=== PATIENT | male | born 1955 | race Caucasian/White ===

== ENCOUNTER 2023-05-28 05:40 | Inpatient (IN) | payer MEDICARE, OTHER ==
[2023-05-24 15:55] VITALS: BMI 24.0
[2023-05-28] MEDS ORDERED: PROPOFOL 200 MG/20 ML VIAL ONE (08:09)
== END 2023-05-28 10:35 | disposition home or self-care (01) | DRG 392 ==
LOC: SDC 05:40 → SURG A 06:17
PROVIDERS: ADMIT Internal Medicine; ATTEND Internal Medicine
PROC: 0DJ08ZZ Inspection of Upper Intestinal Tract, Via Natural or Artificial Opening Endoscopic (ICD-10-PCS; principal; 2023-05-28)
DX: R13.10 Dysphagia, unspecified (principal); R63.4 Abnormal weight loss; E78.00 Pure hypercholesterolemia, unspecified; J45.909 Unspecified asthma, uncomplicated; Z98.890 Other specified postprocedural states; Z79.899 Other long term (current) drug therapy
CPT/HCPCS: 36416

== ENCOUNTER 2023-07-26 09:16 | Outpatient (CLI) | payer MEDICARE, OTHER | END 2023-07-26 09:17 | disposition home or self-care (01) | LOC: RAD 09:16 | PROVIDERS: ATTEND Internal Medicine Critical Care Medicine | DX: R06.00 Dyspnea, unspecified (principal); J18.9 Pneumonia, unspecified organism | CPT/HCPCS: 71046 ==

== ENCOUNTER 2024-05-26 10:44 | Outpatient (CLI) | payer MEDICARE, OTHER | END 2024-05-26 10:45 | disposition home or self-care (01) | LOC: RAD 10:44 | PROVIDERS: ATTEND Internal Medicine Critical Care Medicine | DX: R06.00 Dyspnea, unspecified (principal) | CPT/HCPCS: 71046 ==

== ENCOUNTER 2025-04-08 06:19 | Day surgery (SDC) | payer MEDICARE, OTHER ==
[2025-04-07 12:20] VITALS: BMI 26.6
[2025-04-08] MEDS ORDERED: PROPOFOL 40 ML ONE (07:02)
[2025-04-08] MEDS ORDERED: Lidocaine 1% PF 5 ML VIAL ONE (07:02)
[2025-04-08] MEDS ORDERED: Albuterol HFA (OR) 200 PUFF INH ONE (07:55)
[2025-04-08] MEDS ORDERED: Glycopyrrolate 0.2 MG/ML 5 ML SYRINGE ONE (08:03)
[2025-04-08] MEDS ORDERED: PROPOFOL 20 ML ONE (08:30)
== END 2025-04-08 09:57 | disposition home or self-care (01) ==
LOC: SDC 06:19
PROVIDERS: ATTEND Internal Medicine
PROC: 0DBM8ZZ Excision of Descending Colon, Via Natural or Artificial Opening Endoscopic (ICD-10-PCS; principal; 2025-04-08)
PROC: 0DBL8ZZ Excision of Transverse Colon, Via Natural or Artificial Opening Endoscopic (ICD-10-PCS; 2025-04-08)
PROC: 0DBN8ZZ Excision of Sigmoid Colon, Via Natural or Artificial Opening Endoscopic (ICD-10-PCS; 2025-04-08)
PROC: 0DBP8ZZ Excision of Rectum, Via Natural or Artificial Opening Endoscopic (ICD-10-PCS; 2025-04-08)
PROC: 0DJ08ZZ Inspection of Upper Intestinal Tract, Via Natural or Artificial Opening Endoscopic (ICD-10-PCS; 2025-04-08)
DX: Z12.11 Encounter for screening for malignant neoplasm of colon (principal); D12.3 Benign neoplasm of transverse colon; D12.5 Benign neoplasm of sigmoid colon; D12.8 Benign neoplasm of rectum; K57.30 Diverticulosis of large intestine without perforation or abscess without bleeding; K64.8 Other hemorrhoids; K63.89 Other specified diseases of intestine; J45.909 Unspecified asthma, uncomplicated; E78.00 Pure hypercholesterolemia, unspecified; K21.9 Gastro-esophageal reflux disease without esophagitis; Z86.0101 Personal history of adenomatous and serrated colon polyps; Z98.890 Other specified postprocedural states; Z79.899 Other long term (current) drug therapy
CPT/HCPCS: 43235; 45385; J2704; 88305